=== PATIENT | male | born 1995 | race Caucasian/White ===

== ENCOUNTER 2018-02-18 17:06 | Emergency (ER) | payer BC ==
[~2018-02-18] VITALS: Ht 190.5 cm; Wt 108.9 kg
--- NOTE | ~2018-02-18 | EKG ---
[place] [address] [facility] [place] [place] [address] ELECTROCARDIOGRAM REPORT Name: HERNANDEZ PHILLIPS SID Lea [id number] Admission: 02/18/18 Attend Phys: Discharge: 02/18/18 Date of : [birth year] Report #: [id number] THIS REPORT FOR: //name// [facility] ED Test Date: 2018-02-18 Test Time: 17:30:45 Pat Name: HERNANDEZ PHILLIPS Department: Room: Gender: Public Information Officer: [facility] : 1995 Requested By: Sourav Gibson Order Number: [id number] MD: Austin Berger Measurements Intervals [place] Rate: 79 P: -2 [place]: 197 QRS: 45 QRSD: 96 T: 19 QT: 365 QTc: 419 Interpretive Statements Sinus rhythm Normal tracing No previous ECG available for comparison Electronically Signed On 02-19-2018 10:37:34 [employer] by Austin Berger [email or web address] <ELECTRONICALLY SIGNED> By: Austin Berger MD, [facility] 02/19/18 1037 1730 1730 Austin Berger MD, FACC /EPI
[2018-02-18] MEDS ORDERED: NOHOMEMEDICATIONS (17:43)
[2018-02-18 18:11] LABS: ABSOLUTE NEUTROPHILS 4.1 thou/uL (1.4-8.2); BASOPHILS 0.7 % (0.0-2.0); EOSINOPHILS 0.7 % (0.0-3.0); HEMATOCRIT 45.2 % (42.0-52.0); HEMOGLOBIN 15.2 gm/dL (14.0-18.0); LYMPHOCYTES 31.1 % (24.0-44.0); MCH 29.7 pg (26.0-34.0); MCHC 33.7 g/dL (28.0-37.0); MCV 88.3 fL (80.0-100.0); MONOCYTES 7.7 % (1.0-8.0); PLATELET COUNT 233 thou/uL (150-400); POLYS 59.8 % (36.0-66.0); RBC 5.11 mil/uL (4.50-6.00); RDW 13.1 % (10.5-14.5); WBC 6.8 thou/uL (4.0-11.0)
[2018-02-18 18:24] LABS: ANION GAP 10 mmol/L (7-16); BUN 26 mg/dL (7-18); CHLORIDE 102 mmol/L (98-107); CO2 29 mmol/L (21-32); CREATININE 1.1 mg/dL (0.7-1.3); GLUCOSE 90 mg/dL (74-106); POTASSIUM 3.7 mmol/L (3.5-5.1); SODIUM 141 mmol/L (136-145)
[2018-02-18 18:32] LABS: TROPONIN-I <0.06 ng/mL (<0.06)
[2018-02-18 18:56] VITALS: BP 125/70
== END 2018-02-18 18:57 | disposition home or self-care (01) ==
LOC: ER 17:06
PROVIDERS: Physician Assistant
DX: R00.2 Palpitations (principal)

== ENCOUNTER → 2018-04-17 | Outpatient (CLI) | payer BC ==
[~2018-04-17] MED LIST: NOHOMEMEDICATIONS
--- NOTE | 2018-04-17 14:39 | 2DMMODE ---
[facility] [email or web address] [place] [address] 2 D/M-MODE ECHOCARDIOGRAM Name: JACQUELINEHERNANDEZ V Room #: REG [facility]#: [id number] Admission: 04/17/18 Attend Phys: Quentin Jean-Baptiste MD Discharge: Date of : [birth year] Date of Service: 04/17/18 1439 Report #: [id number] THIS REPORT FOR: //name// APPROVED REPORT Study performed: 04/17/2018 13:36:06 EXAM: Comprehensive 2D, Doppler, and color-flow Echocardiogram Patient Location: Out-Patient Room #: Echo lab 2 Status: routine BSA: 2.35 HR: 73 bpm BP: 108/76 mmHg Rhythm: NSR Other Information Study Quality: Good Indications Palpitations 2D Dimensions RVDd: 38.34 mm IVSd: 11.02 (7-11mm) LVOT Diam: 24.72 (18-24mm) LVDd: 47.62 mm PWd: 10.87 (7-11mm) Ascending Ao: 30.22 (22-36mm) LVDs: 33.40 (25-40mm) Aortic Root: 34.64 mm IVC: 15.00 mm Volumes Left Atrial Volume (Systole) Single Plane 4CH: 26.70 mL Single Plane 2CH: 57.09 mL LA ESV Index: 18.00 mL/m2 Aortic Valve AoV Peak Kan.: 1.22 m/s AO Peak Gr.: 5.93 mmHg LVOT Max P.37 mmHg LVOT Max V: 0.92 m/s CHARLIE Vmax: 3.61 cm2 Mitral Valve E/A Ratio: 1.6 MV Decel. Time: 167.97 ms MV E Max Kan.: 0.89 m/s [facility] [address] [place] [address] 2 D/M-MODE ECHOCARDIOGRAM Name: HERNANDEZ PHILLIPS SID Tate Room #: [facility]#: [id number] Admission: 04/17/18 Attend Phys: Quentin Jean-Baptiste MD Discharge: Date of : [birth year] Date of Service: 04/17/18 1439 Report #: [id number] MV A Kan.: 0.54 m/s MV PHT: 48.71 ms IVRT: 92.27 ms Pulmonary Valve PV Peak Kan.: 0.99 m/s PV Peak Gr.: 3.95 mmHg Pulmonary Vein P Vein S: 0.49 m/s P Vein A: 0.26 m/s P Vein D: 0.33 m/s P Vein A Dur.: 129.2 msec P Vein S/D Ratio: 1.48 Left Ventricle The left ventricle is normal size. There is normal LV segmental wall motion. There is normal left ventricular wall thickness. Left ventricular systolic function is normal. The left ventricular ejection fraction is within the normal range. LVEF is 55-60%. The left ventricular diastolic function is normal. Right Ventricle The right ventricle is normal size. The right ventricular systolic function is normal. Atria The left atrium size is normal. The right atrium size is normal. Aortic Valve The aortic valve is normal in structure. No aortic regurgitation is present. There is no aortic valvular stenosis. Mitral Valve The mitral valve is normal in structure. Trace mitral regurgitation. No evidence of mitral valve stenosis. Tricuspid Valve The tricuspid valve is normal in structure. There is no tricuspid valve regurgitation noted. Pulmonic Valve The pulmonary valve is normal in structure. There is no pulmonic valvular regurgitation. Great Vessels The aortic root is normal in size. IVC is normal in size and collapses >50% with inspiration. [address] [address] 2 D/M-MODE ECHOCARDIOGRAM Name: HERNANDEZ PHILLIPS SID Tate Room #: REG [facility]#: [id number] Admission: 04/17/18 Attend Phys: Quentin Jean-Baptiste MD Discharge: Date of : [birth year] Date of Service: 04/17/18 1439 Report #: [id number] Pericardium There is no pericardial effusion. <Conclusion> The left ventricle is normal size. There is normal left ventricular wall thickness. Left ventricular systolic function is normal. The left ventricular diastolic function is normal. The right ventricle is normal size. The left atrium size is normal. The aortic valve is normal in structure. Trace mitral regurgitation. There is no tricuspid valve regurgitation noted. <ELECTRONICALLY SIGNED> By: Quentin Jean-Baptiste MD 04/17/18 1439 1439 1439 Quentin Jean-Baptiste MD /INF
--- NOTE | 2018-04-17 14:51 | EXE ---
[facility] [place] [address] STRESS ECHOCARDIOGRAM Name: JACQUELINEHERNANDEZ V Room #: [facility] [id number] Admission: 04/17/18 Attend Phys: Quentin Jean-Baptiste MD Discharge: Date of : [birth year] Date of Service: 04/17/18 1451 Report #: [id number] THIS REPORT FOR: //name// APPROVED REPORT Study performed: 04/17/2018 13:56:48 Exam: Stress Echocardiogram Indication: Palpitations Patient Location: Out-Patient Stress Nurse: Mercy Nuñez RN Room #: Echo lab 2 Status: routine Ht: 6 ft 3 in HR: 71 bpm BP: 108/76 mmHg Rhythm: NSR Medical History Allergies: No known drug allergies Exercise History: Indeterminate Procedure The patient underwent an Exercise Stress Test using the Nacho Protocol. Blood pressure, heart rate, and EKG were monitored. An Echocardiogram was performed by tv technician in four stages in quad fashion. At peak stress, four selected images were obtained and placed side by side with resting images for comparison. Stress Test Details Stress Test: Exercise stress testing was performed using a Nacho protocol. HR Resting HR: 71 bpm Max Heart Rate (APMHR): 197 bpm Max HR Achieved: 181 bpm Target HR (85% APMHR): 167 bpm % of APMHR: 91 Recovery HR: 99 bpm HR response to stress: Normal HR response to stress BP Resting BP: 108/76 mmHg Max BP: 140/60 mmHg Recovery BP: 128/60 mmHg BP response to stress: Normal blood pressure response to stress. [facility] [address] [place] [address] STRESS ECHOCARDIOGRAM Name: JACQUELINEHERNANDEZ V Room #: REG [facility]#: [id number] Admission: 04/17/18 Attend Phys: Quentin Jean-Baptiste MD Discharge: Date of : 89 Date of Service: 04/17/18 1451 Report #: [id number] Resting ECG: Sinus Rhythm Stress ECG: Sinus Rhythm ST Change: Non-ischemic Clinical Reason for Termination: Maximal effort Exercise duration: 8 min 16 sec Highest Stage Achieved: Stage 3: 3.4 mph at 14% grade. Exercise capacity: 10.4 METs Overall Exercise Capacity for Age: Average Pre-Stress Echo The resting Echocardiogram showed normal left ventricular contractility with an estimated Ejection Fraction of about >55%. Normal wall motion in all segments on baseline images. Post-Stress Echo The stress Echocardiogram showed normal left ventricular contractility with an estimated Ejection Fraction of about >70%. Normal augmentation of wall motion in all segments on post stress images. Clinical Normal augmentation of myocardial wall segments using a 17 segment model. No clinical or ECG evidence for ischemia. Conclusion Clinical Response: Non-ischemic Exercise Capacity: Average Stress ECG Response: Non-ischemic Stress Echo Images: Non-ischemic The left ventricle is normal in size and wall thickness in both the rest and stress images. No prior study available for comparison. Other Information Study Quality: Good <Conclusion> [facility] [address] [place] [address] STRESS ECHOCARDIOGRAM Name: HERNANDEZ PHILLIPS SID Lea Room #: REG [facility].#: [id number] Admission: 04/17/18 Attend Phys: Quentin Jean-Baptiste MD Discharge: Date of : 89 Date of Service: 04/17/181450 Report #: [id number] The left ventricle is normal in size and wall thickness in both the rest and stress images. <ELECTRONICALLY SIGNED> By: Quentin Jean-Baptiste MD 04/17/181450 50 50 Quentin Jean-Baptiste MD /INF
== END ==
LOC: CV 07:22
DX: R00.2 Palpitations (principal)